=== PATIENT | female | born 1975 | race Caucasian/White ===

== ENCOUNTER 2017-09-13 00:56 | Emergency (ER) | payer MEDICAID ==
[~2017-09-13] VITALS: Ht 162.6 cm; Wt 63.6 kg
[2017-09-13 00:58] VITALS: BP 122/75
--- NOTE | 2017-09-13 01:20 | NUR ---
41Y F BIB SELF S/P FALL, POST SHOWER. PT DENIES ANY N/V/D, SOB, CP. NO LOC NOTED. NO NEURAL DEFICITS NOTED. PT AAOX4 BREATHING IS UNLABORED AND EVEN. PT AMBULATED TO ER BED 10 WITH STEADY GAIT
--- NOTE | 2017-09-13 01:22 | NUR ---
Patient being evaluated by physician at bedside.
[2017-09-13 01:30] VITALS: BP 119/69
--- NOTE | 2017-09-13 01:30 | NUR ---
Patient discharged with v/s stable. Written and verbal after care instructions given and explained. Patient alert, oriented and verbalized understanding of instructions. Ambulatory with steady gait. All questions addressed prior to discharge. ID band removed. Patient advised to follow up with PMD. Rx of CIPRO 500MG given. Patient educated on indication of medication including possible reaction and side effects. Opportunity to ask questions provided and answered.
== END 2017-09-13 01:31 | disposition home or self-care (01) ==
LOC: MED 00:56
DX: S09.90XA Unspecified injury of head, initial encounter (principal); N39.0 Urinary tract infection, site not specified; X58.XXXA Exposure to other specified factors, initial encounter; Y93.89 Activity, other specified; Y92.89 Other specified places as the place of occurrence of the external cause; Y99.8 Other external cause status
CPT/HCPCS: 81002; 81025; 99283